=== PATIENT | female | born 2000 ===

== ENCOUNTER 2023-12-07 13:12 | Outpatient (CLI) | payer OTHER ==
[2023-12-07 14:26] LABS: HEMATOCRIT 33.8 % (36.0-45.00); HEMOGLOBIN 11.5 g/dL (12.0-15.00); MEAN CELL VOLUME 84.2 fL (80.00-100.00); MEAN CORPUSCULAR HEMOGLOBIN 28.6 pg (27.00-32.0); MEAN CORPUSCULAR HGB CONC 33.9 g/dl (32.0-36.0); PLATELET COUNT 207 K/uL (150-450); RED BLOOD COUNT 4.01 M/uL (4.00-6.00)
[2023-12-07 14:56] LABS: COL EPI 133 SECONDS (82-175)
== END 2023-12-07 13:13 | disposition home or self-care (01) ==
LOC: LAB 13:12
PROVIDERS: ATTEND Internal Medicine Hematology & Oncology
DX: D68.01 Von Willebrand disease, type 1 (principal); D64.9 Anemia, unspecified

== ENCOUNTER 2025-06-24 13:06 | Outpatient (CLI) | payer OTHER ==
[~2025-06-24 13:06] MED LIST: PRENATAL + DHA1 EAC1 PO
== END 2025-06-24 13:08 | disposition home or self-care (01) ==
LOC: SONOGRAMA 13:06
PROVIDERS: ATTEND Obstetrics & Gynecology
DX: N63.11 Unspecified lump in the right breast, upper outer quadrant (principal); N63.12 Unspecified lump in the right breast, upper inner quadrant